=== PATIENT | male | born 1985 | race African-American/Black ===

== ENCOUNTER 2016-09-25 19:31 | Emergency (ER) | payer SELFPAY ==
[2016-09-25] MEDS ORDERED: methylPREDNISolone Acetate 40 mg/ml Vial ONE (19:55)
== END 2016-09-25 20:10 | disposition home or self-care (01) ==
LOC: BURERS 19:31
DX: T78.40XA Allergy, unspecified, initial encounter (principal); F17.210 Nicotine dependence, cigarettes, uncomplicated; X58.XXXA Exposure to other specified factors, initial encounter
CPT/HCPCS: 96372; J1030

== ENCOUNTER 2017-12-11 15:47 | Emergency (ER) | payer OTHER, SELFPAY ==
--- NOTE | 2017-12-11 16:37 | CT ---
CT BRAIN WITHOUT CONTRAST: 12/11/2017 FINDINGS: The ventricles are normal in size with no shift. No intracranial bleeding or extraaxial hematoma is seen. There is no sign of stroke, mass, or edema. The skull appears intact and the visible paranasa l sinuses are clear, as are the mastoid air cells. IMPRESSION: No acute intracranial findings. POS: HOME
--- NOTE | 2017-12-11 21:31 | RAD ---
LEFT RIBS WITH PA CHEST: 12/11/2017 COMPARISON: 05/19/2012 FINDINGS: The heart is normal in size, and the lungs are clear. No infiltrate or effusion is seen. There is n o pneumothorax. The mediastinum shows no widening or shift. Regarding the left ribs, no fractures are identified. The patient has scoliosis in the thoracolumbar spine. IMPRESSION: No acute finding. POS: HOME
== END 2017-12-11 18:22 | disposition home or self-care (01) ==
LOC: BURERS 15:47
DX: S01.81XA Laceration without foreign body of other part of head, initial encounter (principal); V49.9XXA Car occupant (driver) (passenger) injured in unspecified traffic accident, initial encounter; Y92.488 Other paved roadways as the place of occurrence of the external cause; F17.210 Nicotine dependence, cigarettes, uncomplicated
CPT/HCPCS: 12013; 70450

== ENCOUNTER 2017-12-19 15:10 | Emergency (ER) | payer OTHER, SELFPAY | END 2017-12-19 15:30 | disposition home or self-care (01) | LOC: BURERS 15:10 | DX: Z48.02 Encounter for removal of sutures (principal); F17.210 Nicotine dependence, cigarettes, uncomplicated ==

== ENCOUNTER 2018-12-22 08:44 | Emergency (ER) | payer OTHER, SELFPAY ==
[2018-12-22] MEDS ORDERED: Lidocaine 1% PF 5 ML VIAL ONE (08:59)
[2018-12-22] MEDS ORDERED: Clindamycin 150 MG CAP ONE (09:43)
== END 2018-12-22 10:05 | disposition home or self-care (01) ==
LOC: BURERS 08:44
DX: K12.2 Cellulitis and abscess of mouth (principal); F17.210 Nicotine dependence, cigarettes, uncomplicated
CPT/HCPCS: 41008; J2001

== ENCOUNTER 2018-12-25 15:05 | Emergency (ER) | payer SELFPAY ==
[2018-12-25] MEDS ORDERED: Triple Antibiotic Oint 1 GM Packet ONE (15:23)
== END 2018-12-25 15:31 | disposition home or self-care (01) ==
LOC: BURERS 15:05
DX: Z48.817 Encounter for surgical aftercare following surgery on the skin and subcutaneous tissue (principal); F17.210 Nicotine dependence, cigarettes, uncomplicated

== ENCOUNTER 2025-03-02 17:29 | Emergency (ER) | payer SELFPAY ==
[2025-03-02] MEDS ORDERED: Lidocaine Viscous Sol 2% 15 ml UD Cup ONE (17:53)
[2025-03-02] MEDS ORDERED: Ibuprofen 800 MG TAB ONE ×2 (18:14→18:22)
== END 2025-03-02 18:25 | disposition home or self-care (01) ==
LOC: BURERS 17:29
DX: K04.7 Periapical abscess without sinus (principal); F17.210 Nicotine dependence, cigarettes, uncomplicated
CPT/HCPCS: 41800